=== PATIENT | male | born 1980 | race African-American/Black ===

== ENCOUNTER 2016-05-13 15:17 | Emergency (ER) | payer MEDICAID ==
[~2016-05-13] VITALS: Ht 172.7 cm; Wt 100.0 kg
[2016-05-13 15:43] VITALS: BP 180/102; PULSE 59; RESP 14; TEMP 98.1; O2SAT 99
[2016-05-13 17:17] VITALS: BP 178/101; PULSE 56; RESP 20; O2SAT 100
[2016-05-13] MEDS ORDERED: TETANUS/DIPHTHERIA TOXOID ADULT 0.5 ML VIAL IM ONE (17:30)
[2016-05-13] MEDS ORDERED: SODIUM CHLORIDE 0.9% FLUSH 5 ML FLUSH IVF PRN (17:30)
[2016-05-13 17:33] VITALS: BP 187/104; RESP 18
[2016-05-13 17:34] VITALS: BP 188/123; RESP 18
[2016-05-13 17:35] VITALS: O2SAT 100
--- NOTE | 2016-05-13 17:41 | PD ---
HPI Chief Complaint: Neuro Symptoms/ Deficits Time Seen by Provider: 17:19 Travel History International Travel<30 days: No Contact w/Intl Traveler<30days: No Traveled to known affect area: No History of Present Illness HPI The patient is a 35-year-old Suzanne male who presents emergency Department after syncopal episode. The patient states he is under a lot of stress at home, states his mother recently , last . The patient then states another person brought up "bad memories ", which caused him to have thoughts of harming others. The patient then went to use the bathroom this morning, was having a bowel movement when he apparently passed out. The patient states he fell forward, striking his lip on the ground. He states he has a superficial laceration to the inside of the lower lip. He states he had a few episodes of shaking, but denied any urinary incontinence. The patient was awake and alert shortly thereafter, denies any history of seizures. The patient is unsure when his last tetanus shot was. The patient denied any palpitations, shortness of breath, nausea, vomiting, or diaphoresis prior to the syncopal episode. He denies any known history of familial syncopal episodes. The patient does have a history of anxiety and possibly depression, states he is having thoughts of harming others, but no one in particular. He denies any alcohol or drug use. The patient would like to see a psychiatrist. [facility] Past Medical History Medical History: Denies Significant Hx Hypertension: Yes Past Surgical History Surgical History: No Previous Surgery Social History Alcohol Use: Yes ([facility]) Tobacco Use: No Substance Use: No Allergies-Medications (Allergen,Severity, Reaction): Coded Allergies: No Known Allergies (Unverified , 05/13/16) Review of Systems Except as stated in HPI: all other systems reviewed are Neg General / Constitutional: No: Fever HENT: No: Lightheadedness Cardiovascular: Positive: Syncope, No: Chest Pain or Discomfort, Palpitations , Irregular Rhythm, Tachycardia, Diaphoresis Respiratory: No: Shortness of Breath Gastrointestinal: No: Nausea, Vomiting, Abdominal Pain Neurologic: Positive: Syncope, No: Dizziness, Seizures Psychiatric: Positive: Anxiety, Depression, Homicidal Ideation, No: Suicidal Ideations, Substance Abuse Physical Exam Narrative GENERAL: Awake, alert, pleasant 35-year-old male who appears his stated age and is in no acute respiratory distress. SKIN: Warm and dry. HEAD: Atraumatic. Normocephalic. EYES: Pupils equal and round. Pupils are 3 mm bilateral and reactive. EOMs are intact. ENT: No nasal bleeding or discharge. The patient has a superficial laceration on the inside of the right lower lip with no significant dehiscence. NECK: Trachea midline. No JVD. CARDIOVASCULAR: Regular rate and rhythm. No murmur appreciated. RESPIRATORY: No accessory muscle use. Clear to auscultation. Breath sounds equal bilaterally. GASTROINTESTINAL: Abdomen soft, non-tender, nondistended. No rebound tenderness. MUSCULOSKELETAL: No obvious deformities. No clubbing. No cyanosis. No edema. NEUROLOGICAL: Awake and alert. No obvious cranial nerve deficits. Motor grossly within normal limits. Normal speech. Nonfocal. Oriented 4. Follows commands without difficulty. PSYCHIATRIC: Appropriate mood and affect; insight and judgment normal. Data Data Last Documented VS Vital Signs Date Time Temp Pulse Resp B/P Pulse Ox O2 Delivery O2 Flow Rate FiO2 05/13/16 20:12 98.4 65 18 138/76 100 Room Air Orders Electrocardiogram (05/13/16 17:29) Complete Blood Count With Diff (05/13/16 17:29) Comprehensive Metabolic Panel (05/13/16 17:29) Magnesium (Mg) (05/13/16 17:29) Ecg Monitoring (05/13/16 17:29) Iv Access Insert/Monitor (05/13/16 17:29) Oximetry (05/13/16 17:29) Sodium Chloride 0.9% Flush (Ns Flush) (05/13/16 17:30) Orthostatic Vital Signs (05/13/16 17:29) Tetanus/Diphtheria Tox Adult (Tetanus/Di (05/13/16 17:30) Psych Screen (05/13/16 17:32) Enalaprilat Inj (Vasotec Inj) (05/13/16 18:30) Labs Laboratory Tests Test 05/13/16 17:30 White Blood Count 7.2 TH/MM3 Red Blood Count 4.93 MIL/MM3 Hemoglobin 14.9 GM/DL Hematocrit 43.7 % Mean Corpuscular Volume 88.6 FL Mean Corpuscular Hemoglobin 30.2 PG Mean Corpuscular Hemoglobin 34.1 % Concent Red Cell Distribution Width 13.7 % Platelet Count 206 TH/MM3 Mean Platelet Volume 8.6 FL Neutrophils (%) (Auto) 48.2 % Lymphocytes (%) (Auto) 40.6 % Monocytes (%) (Auto) 7.4 % Eosinophils (%) (Auto) 3.3 % Basophils (%) (Auto) 0.5 % Neutrophils # (Auto) 3.5 TH/MM3 Lymphocytes # (Auto) 2.9 TH/MM3 Monocytes # (Auto) 0.5 TH/MM3 Eosinophils # (Auto) 0.2 TH/MM3 Basophils # (Auto) 0.0 TH/MM3 CBC Comment DIFF FINAL Differential Comment Sodium Level 140 MEQ/L Potassium Level 3.9 MEQ/L Chloride Level 105 MEQ/L Carbon Dioxide Level 29.1 MEQ/L Anion Gap 6 MEQ/L Blood Urea Nitrogen 12 MG/DL Creatinine 1.23 MG/DL Estimat Glomerular Filtration 82 ML/MIN Rate Random Glucose 74 MG/DL Calcium Level 8.6 MG/DL Magnesium Level 2.2 MG/DL Total Bilirubin 0.4 MG/DL Aspartate Amino Transf 26 U/L (AST/SGOT) Alanine Aminotransferase 41 U/L (ALT/SGPT) Alkaline Phosphatase 68 U/L Total Protein 7.6 GM/DL Albumin 3.9 GM/DL MDM Medical Decision Making Medical Screen Exam Complete: Yes Emergency Medical Condition: Yes Medical Record Reviewed: Yes Interpretation(s) EKG reveals sinus bradycardia with a heart rate of 53. No ischemic changes or ectopy noted. Laboratory Tests Test 05/13/16 17:30 White Blood Count 7.2 TH/MM3 Red Blood Count 4.93 MIL/MM3 Hemoglobin 14.9 GM/DL Hematocrit 43.7 % Mean Corpuscular Volume 88.6 FL Mean Corpuscular Hemoglobin 30.2 PG Mean Corpuscular Hemoglobin 34.1 % Concent Red Cell Distribution Width 13.7 % Platelet Count 206 TH/MM3 Mean Platelet Volume 8.6 FL Neutrophils (%) (Auto) 48.2 % Lymphocytes (%) (Auto) 40.6 % Monocytes (%) (Auto) 7.4 % Eosinophils (%) (Auto) 3.3 % Basophils (%) (Auto) 0.5 % Neutrophils # (Auto) 3.5 TH/MM3 Lymphocytes # (Auto) 2.9 TH/MM3 Monocytes # (Auto) 0.5 TH/MM3 Eosinophils # (Auto) 0.2 TH/MM3 Basophils # (Auto) 0.0 TH/MM3 CBC Comment DIFF FINAL Differential Comment Sodium Level 140 MEQ/L Potassium Level 3.9 MEQ/L Chloride Level 105 MEQ/L Carbon Dioxide Level 29.1 MEQ/L Anion Gap 6 MEQ/L Blood Urea Nitrogen 12 MG/DL Creatinine 1.23 MG/DL Estimat Glomerular Filtration 82 ML/MIN Rate Random Glucose 74 MG/DL Calcium Level 8.6 MG/DL Magnesium Level 2.2 MG/DL Total Bilirubin 0.4 MG/DL Aspartate Amino Transf 26 U/L (AST/SGOT) Alanine Aminotransferase 41 U/L (ALT/SGPT) Alkaline Phosphatase 68 U/L Total Protein 7.6 GM/DL Albumin 3.9 GM/DL Differential Diagnosis Differential diagnosis included syncope, vasovagal syncope, orthostatic syncope , arrhythmia, seizure, PTSD, adjustment disorder, depressive disorder, anxiety, homicidal ideation. Narrative Course IV was established, labs are drawn and sent, and the patient was placed on cardiac telemetry monitoring and continuous pulse oximetry monitoring. EKG was ordered and interpreted. Orthostatic vital signs were obtained. The patient's orthostatic vital signs are unremarkable. The patient was hypertensive, therefore, was administered Vasotec 1.25 mg intravenously. Laboratory evaluation is unremarkable. The patient had a syncopal episode while having a bowel movement, most likely related to vasovagal syncope. No evidence of Brugada or WPW on EKG. Patient is medically clear to be evaluated by psychiatry. Disposition as per psych. Diagnosis Primary Impression: Vasovagal syncope Additional Impression: Adjustment reaction Qualified Code: F43.23 - Adjustment disorder with mixed anxiety and depressed mood Patient Instructions: General Instructions Additional Instructions: Follow-up with her primary physician. Continue current medications as previously directed. Return if symptoms worsen or progress. Disposition: 01 DISCHARGE HOME Condition: Stable Les Jones MD May 13, 2016 17:41
[2016-05-13 17:50] LABS: AUTOMATED NEUTROPHIL # 3.5 TH/MM3 (1.8-7.7); BASOPHIL % 0.5 % (0.0-2.0); EOSINOPHIL # 0.2 TH/MM3 (0-0.4); EOSINOPHIL % 3.3 % (0.0-4.0); HEMATOCRIT 43.7 % (39.0-51.0); HEMO FLAGS DIFF FINAL; LYMPH % 40.6 % (9.0-44.0); LYMPHOCYTE # 2.9 TH/MM3 (1.0-4.8); MEAN CELL VOLUME 88.6 FL (80.0-100.0); MEAN CORPUSCULAR HEMOGLOBIN 30.2 PG (27.0-34.0); MEAN CORPUSCULAR HGB CONC 34.1 % (32.0-36.0); MONO % 7.4 % (0.0-8.0); NEUT % 48.2 % (16.0-70.0); PLATELET COUNT 206 TH/MM3 (150-450); RED BLOOD COUNT 4.93 MIL/MM3 (4.50-5.90); RED CELL DISTRIBUTION WIDTH 13.7 % (11.6-17.2); WHITE BLOOD COUNT 7.2 TH/MM3 (4.0-11.0)
[2016-05-13 18:16] LABS: ALKALINE PHOSPHATASE 68 U/L (45-117); TOTAL BILIRUBIN ADULT 0.4 MG/DL (0.2-1.0)
[2016-05-13 18:23] LABS: ALT (GPT) 41 U/L (12-78); ANION GAP 6 MEQ/L (5-15); AST (GOT) 26 U/L (15-37); BICARBONATE 29.1 MEQ/L (21.0-32.0); BLOOD UREA NITROGEN 12 MG/DL (7-18); CHLORIDE 105 MEQ/L (98-107); GLOMERULAR FILTRATION RATE 82 ML/MIN (>89); MAGNESIUM 2.2 MG/DL (1.5-2.5); POTASSIUM 3.9 MEQ/L (3.5-5.1); SODIUM (NA) 140 MEQ/L (136-145)
[2016-05-13] MEDS ORDERED: ENALAPRILAT 1.25 MG/ML VIAL IV PUSH ONE (18:30)
[2016-05-13 20:12] VITALS: BP 138/76; PULSE 65; RESP 18; TEMP 98.4; O2SAT 100
--- NOTE | 2016-05-14 13:29 | EKG ---
Date Performed: 05/13/2016 Time Performed: 17:47:17 PTAGE: 35 years EKG: SINUS BRADYCARDIA MINIMAL VOLTAGE CRITERIA FOR LVH, CONSIDER NORMAL VARIANT BORDERLINE ECG NO PREVIOUS TRACING DOCTOR: Zelalem Nguyen Interpretating Date/Time 05/14/2016 13:27:51
== END 2016-05-13 20:34 | disposition home or self-care (01) ==
LOC: NEPE 15:17
DX: R55 Syncope and collapse (principal); F43.23 Adjustment disorder with mixed anxiety and depressed mood; I10 Essential (primary) hypertension; S01.511A Laceration without foreign body of lip, initial encounter; W18.30XA Fall on same level, unspecified, initial encounter
CPT/HCPCS: 80053; 83735; 85025; 90471; 90714; 93005; 96374